=== PATIENT | male | born 1950 | race Caucasian/White ===

== ENCOUNTER 2017-05-20 09:48 | Inpatient (IN) | payer OTHER ==
[2017-05-20] VITALS (13 sets, daily range): BP systolic 105–147; BP diastolic 60–90
[~2017-05-20] VITALS: Ht 182.9 cm; Wt 101.6 kg
--- NOTE | ~2017-05-20 | H ---
[address] [address] HISTORY AND PHYSICAL Name: LISSETT KAY Room: [address] IN M.R.#: [id number] Admission: 05/20/17 Attend Phys: Tacos Ag MD, Discharge: 05/22/17 Date of : 52 Report #: [id number] THIS REPORT FOR: //name// For History and Physical please refer to the dictated consultation note in the patient's medical record. By[facility] MICHELE /IVÁN
[2017-05-20 09:59] LABS: ABSOLUTE BASOPHILS 0.1 thou/uL (0.0-0.2); ABSOLUTE EOSINOPHILS 0.4 thou/uL (0.0-0.7); ABSOLUTE LYMPHOCYTES 1.7 thou/uL (0.8-5.3); ABSOLUTE MONOCYTES 0.5 thou/uL (0.0-1.2); ABSOLUTE NEUTROPHILS 5.5 thou/uL (1.6-8.1); BASOPHILS 1.2 %; EOSINOPHILS 4.7 %; HEMATOCRIT 48.3 % (42.0-52.0); HEMOGLOBIN 16.5 gm/dL (14.0-18.0); LYMPHOCYTES 21.1 %; MCH 30.8 pg (26.0-34.0); MCHC 34.2 g/dL (28.0-37.0); MCV 90.1 fL (80.0-100.0); MONOCYTES 6.5 %; MPV 9.5 fl. (7.2-11.1); NUCLEATED RBCS 0 /100WBC; PLATELET COUNT* 138 thou/uL (150-400); POLYS 66.5 %; RBC 5.37 mil/uL (4.50-6.00); RDW-CV 14.2 % (10.5-14.5); WBC 8.2 thou/uL (4.0-11.0)
[2017-05-20 10:09] LABS: ANION GAP 10 mmol/L (7-16); APTT 26.5 Seconds (25.0-31.3); BUN 10 mg/dL (7-18); CALCIUM 8.3 mg/dL (8.5-10.1); CHLORIDE 100 mmol/L (98-107); CO2 24 mmol/L (21-32); CREATININE 1.3 mg/dL (0.6-1.3); GLUCOSE 312 mg/dL (70-99); INR 1.2; POTASSIUM 3.9 mmol/L (3.5-5.1); PROTIME 11.2 Seconds (9.20-11.50); SODIUM 134 mmol/L (136-145)
[2017-05-20 10:15] LABS: ALKALINE PHOSPHATASE 118 U/L (46-116); CHOLESTEROL 169 mg/dL (<200); HDL CHOLESTEROL 23 mg/dL (>40); LDL CHOLESTEROL 98 mg/dL (<100); MAGNESIUM 1.9 mg/dL (1.8-2.4); SGOT 10 U/L (15-37); SGPT 18 U/L (30-65); TC:HDL 7.3 Ratio (Not establshd); TOTAL BILIRUBIN 0.5 mg/dL (<0.1-1.0); TOTAL PROTEIN 6.5 g/dL (6.4-8.2); TRIGLYCERIDE 240 mg/dL (<150); TROPONIN-I LEVEL <0.06 ng/mL (<0.06); VLDL 48 mg/dL (<40)
[2017-05-20 10:16] LABS: SERUM ASSESSMENT Clear
--- NOTE | 2017-05-20 10:31 | NUR ---
PT'S BROTHER, LISSETT KAY CONTACTED AT PT'S REQUEST PHNE # [phone]
--- NOTE | 2017-05-20 17:52 | NUR ---
HRR SB 50'S. C/O PAIN AT R GROIN INSERTION SITE, DENIES WANTING PAIN MED. PT SITTING AT BEDSIDE EATING DINNER NOW. R GROIN SITE UNCHANGED SINCE INTIAL ASSESSMENT. DRESSING CDI. PT ABLE TO MAKE NEEDS KNOWN, CALL LIGHT IN REACH
[2017-05-21] VITALS (10 sets, daily range): BP systolic 102–132; BP diastolic 49–68
[2017-05-21 03:55] LABS: ABSOLUTE BASOPHILS 0.1 thou/uL (0.0-0.2); ABSOLUTE EOSINOPHILS 0.4 thou/uL (0.0-0.7); ABSOLUTE LYMPHOCYTES 2.2 thou/uL (0.8-5.3); ABSOLUTE MONOCYTES 0.7 thou/uL (0.0-1.2); ABSOLUTE NEUTROPHILS 6.6 thou/uL (1.6-8.1); BASOPHILS 0.9 %; EOSINOPHILS 4.2 %; HEMATOCRIT 47.6 % (42.0-52.0); HEMOGLOBIN 16.2 gm/dL (14.0-18.0); LYMPHOCYTES 22.1 %; MCH 30.5 pg (26.0-34.0); MCV 89.9 fL (80.0-100.0); MONOCYTES 7.2 %; MPV 9.1 fl. (7.2-11.1); NUCLEATED RBCS 0 /100WBC; PLATELET COUNT* 141 thou/uL (150-400); POLYS 65.6 %; RDW-CV 14.1 % (10.5-14.5); WBC 10.1 thou/uL (4.0-11.0)
[2017-05-21 04:17] LABS: ANION GAP 6 mmol/L (7-16); BUN 10 mg/dL (7-18); CALCIUM 8.2 mg/dL (8.5-10.1); CHLORIDE 105 mmol/L (98-107); CHOLESTEROL 176 mg/dL (<200); CO2 27 mmol/L (21-32); CREATININE 1.2 mg/dL (0.6-1.3); GLUCOSE 129 mg/dL (70-99); HDL CHOLESTEROL 21 mg/dL (>40); LDL CHOLESTEROL 94 mg/dL (<100); POTASSIUM 4.3 mmol/L (3.5-5.1); SODIUM 138 mmol/L (136-145); TC:HDL 8.4 Ratio (Not establshd); TRIGLYCERIDE 308 mg/dL (<150); VLDL 62 mg/dL (<40)
[2017-05-21 04:26] LABS: SERUM ASSESSMENT CLEAR; TROPONIN-I LEVEL 15.92 ng/mL (<0.06)
--- NOTE | 2017-05-21 05:32 | NUR ---
ASSUMED CARE OF PT AT 1900 ALERT AND ORIENTED X4. PTS VS AND ASSESSMENT STABLE DENIES CHEST PAIN AND R GROIN INCISION DRSG CDI. PT COMPLAIND OF LOW BACK PAIN WHICH PT STATED IS CHRONIC. GAVE PRN NORCO PER ORDER WITH COMPLETE RELIEF. PT HAD NO FURTHER COMPLAINTS AND SLEPT THROUGH THE NIGHT.
--- NOTE | 2017-05-21 09:37 | NUR ---
RECEIVED REPORT FROM NIGHT RN. ASSESSMENT CHARTED. AFEBRILE. TELE STATUS THIS MORNING. WILL CONTINUE TO MONITOR.
--- NOTE | 2017-05-21 12:54 | NUR ---
REPORT GIVEN TO SHERICE ROCHA. ALL QUESTIONS ANSWERED. PT TRANSFER TO TELE IN WHEELCHAIR WITH BELONGINGS TO ROOM 204.
--- NOTE | 2017-05-21 15:34 | EKG ---
[place] [address] ELECTROCARDIOGRAM REPORT Name: LISSETT KAY Room: [address] ADM IN M.R.#: [id number] Admission: 05/20/17 Attend Phys: Tacos Ag MD, Discharge: Date of : 52 Report #: [id number] THIS REPORT FOR: //name// [facility] ED Test Date: 2017-05-20 Test Time: 09:49:45 Pat Name: LISSETT KAY Department: Room: [address] Gender: M Compound Specialist: Jonas GUNN : 1950 Requested By: Tacos Ag Order Number: [id number] Mira MD: Tacos Ag Measurements Intervals [place] Rate: 71 P: 60 [place]: 160 QRS: 44 QRSD: 117 T: 71 QT: 402 QTc: 437 Interpretive Statements Sinus rhythm Nonspecific intraventricular conduction delay Inferior infarct, old No previous ECG available for comparison Electronically Signed On 05-21-2017 15:34:44 HARBOR MASTER by Tacos Ag [email or web address] <ELECTRONICALLY SIGNED> By: Tacos Ag MD, [facility] 05/21/17 1534 0949 0949 Tacos Ag MD, FACC /EPI
--- NOTE | 2017-05-21 15:36 | EKG ---
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: : 1950 Requested By: Armando Andrade Order Number: [id number] MD: Tacos Ag Measurements Intervals [place] Rate: 45 P: 55 [place]: 177 QRS: 15 QRSD: 111 T: -8 QT: 452 QTc: 391 Interpretive Statements Sinus bradycardia Inferior infarct, age indeterminate Posterior infarct, acute (LCx) Lateral leads are also involved No previous ECG available for comparison Electronically Signed On 05-21-2017 15:36:41 TRUSS BUILDER by Tacos Ag [email or web address] <ELECTRONICALLY SIGNED> By: Tacos Ag MD, [facility] 05/21/17 1536 1250 1250 Tacos Ag MD, FAC /EPI
--- NOTE | 2017-05-21 15:42 | EKG ---
[place] [address] ELECTROCARDIOGRAM REPORT Name: LISSETT KAY Room: [address] ADM IN M.R.#: [id number] Admission: 05/20/17 Attend Phys: Tacos Ag MD, Discharge: Date of : 52 Report #: [id number] THIS REPORT FOR: //name// [facility] Test Date: 2017-05-21 Test Time: 08:26:12 Pat Name: LISSETT KAY Department: Room: [facility] Gender: M Iron Bender: 28 : 1950 Requested By: Tacos Ag Order Number: [id number] Mira MD: Tacos Ag Measurements Intervals [place] Rate: 49 P: 55 [place]: 159 QRS: -13 QRSD: 103 T: -19 QT: 438 QTc: 396 Interpretive Statements Sinus bradycardia Probable left ventricular hypertrophy Inferior infarct, age indeterminate No previous ECG available for comparison Electronically Signed On 05-21-2017 15:42:33 ASSISTANT SURVEYOR by Tacos Ag [email or web address] <ELECTRONICALLY SIGNED> By: Tacos Ag MD, [facility] 05/21/17 1542 0826 08 Tacos Ag MD, FACC /EPI
--- NOTE | 2017-05-21 16:37 | NUR ---
RECEIVED PT FROM ICU. PT A/O X'S 4. NO C/O PAIN. PT INSTRUCTED TO NOTIFY NURSE OF CHEST PAIN. PT WALKING AD FUENTES. TRACING SINUS RHYHM. WILL CONTINUE PLAN OF CARE.
[2017-05-22 00:05] VITALS: BP 125/75
--- NOTE | 2017-05-22 01:12 | NUR ---
PT ALERT ORIENTED. PT STATED HEART BURN AT START OF SHIFT. MYLANTA AND PEPCID ORDER OBTAINED. PT DENIES CP. R GROIN SITE WITH SM BANDAGE. SOFT +2 DP PULSE. TELEMETRY SHOWS SR. WILL CONTINUE TO MONITOR.
[2017-05-22 04:11] VITALS: BP 118/52
[2017-05-22 07:45] VITALS: BP 118/71
[2017-05-22 09:09] VITALS: BP 108/49
--- NOTE | 2017-05-22 10:00 | NUR ---
ASSUMED PT CARE 0730. PT A/O X'S 4. DENIES CHEST PAIN. RIGHT GROIN SITE CLEAN, DRY, INTACT, NO HEMATOMA. PT UP AD FUENTES. TRACING SR. VSS. AFEBRILE. PT ANXIOUS TO GO HOME.
[2017-05-22] MEDS ORDERED: BRILINTA90 MG PO (10:10)
[2017-05-22] MEDS ORDERED: ASPIR 8181 MG PO (10:11)
[2017-05-22] MEDS ORDERED: LIPITOR 20 MG T20 M1 PO (10:12)
[2017-05-22] MEDS ORDERED: LISINOPRIL5 MG PO (10:16)
--- NOTE | 2017-05-22 12:01 | NUR ---
RECEIVED DISCHARGE ORDERS. IV AND MATCHER DC'D. ALL BELONGINGS PACKED UP AND LEFT WITH PT. PT EDUCATED ON RIGHT GROIN SITE CARE POST CARDIAC CATH. PRINTED EDUCATION GIVEN TO PT AND COPY SIGNED AND PLACED IN CHART. SCRIPTS GIVEN ALONG WITH PRINTED EDUCATION. PT COMMUNICATES UNDERSTANDING OF FOLLOW UPS AND MEDICATIONS. CAB CALLED FOR PT TO TAKE HOME.
--- NOTE | 2017-05-23 13:10 | CON ---
[address] [address] CONSULTATION Name: LISSETT KAY Room: [address] IN M.R.#: [id number] Admission: 05/20/17 Attend Phys: Tacos Ag MD, Discharge: 05/22/17 Date of : 52 Report #: [id number] THIS REPORT FOR: //name// CC: Tacos Lanza Rolando Shaunna DATE OF SERVICE: 05/20/2017 HISTORY OF PRESENT ILLNESS: The patient is a 66-year-old male with known coronary artery disease and prior stenting of the right coronary artery and prior inferior wall myocardial infarction. He developed central chest discomfort with radiation up into the neck about 4:00 a.m. with waxing and waning of discomfort until he finally presented to the [facility]. EKG in transit revealed inferior ST segment elevation compatible with acute inferior wall ST segment elevation myocardial infarction. In this context with persistent pain, he was seen in the ER. He denied associated shortness of breath, nausea or diaphoresis. Risk factors include tobacco habituation, known coronary artery disease with a prior myocardial infarction and prior stenting, hypercholesterolemia, borderline diabetes. Cigarette smoking is not well quantitated. PHYSICAL EXAMINATION: GENERAL: Demonstrates an acutely distressed middle-aged male. VITAL SIGNS: Blood pressure 140/70, pulse rate is 64, respirations are 18 per minute. NECK: Jugular venous pressure is normal. CHEST: Clear. CARDIAC: Reveals an S4 gallop. ABDOMEN: Soft and nontender, mildly obese. EXTREMITIES: Without edema with intact femoral, pedal and radial pulses. LABORATORY DATA: EKG in the field revealed inferior ST segment elevation. EKG here reveals some resolution of same. IMPRESSION: 1. Acute inferior wall ST segment elevation myocardial infarction with waxing and waning discomfort. 2. Coronary artery disease status post remote inferior infarction. 3. Prior stenting of the right coronary artery. 4. Tobacco habituation. 5. Hypercholesterolemia. 6. Mild type 2 diabetes by the patient's history. RECOMMENDATIONS: [place] [address] CONSULTATION Name: LISSETT KAY Room: [address] IN M.R.#: [id number] Admission: 05/20/17 Attend Phys: Tacos Ag MD, Discharge: 05/22/17 Date of : 52 Report #: [id number] 1. Aspirin and heparin have been administered. 2. Would plan emergent catheterization with strong consideration of acute intervention contingent on the findings of that study. This has been discussed with the patient, we will plan to proceed with cardiac catheterization emergently on 05/20/2017. The patient is going to ICU-1. Thirty-five minutes of critical care time from 11:25-12:00 on 05/20/2017. <ELECTRONICALLY SIGNED> By: Tacos Ag MD, [facility] 05/23/17 1310 1200 [id number] Ag MD, FACC /nt
--- NOTE | 2017-05-23 13:11 | D ---
[address] [address] DISCHARGE SUMMARY Name: LISSETT KAY Room: [address] IN M.R.#: [id number] Admission: 05/20/17 Attend Phys: Tacos Ag MD, Discharge: 05/22/17 Date of : 52 Report #: [id number] THIS REPORT FOR: //name// CC: Tacos Maza MD DATE OF SERVICE: 05/22/2017 FINAL DISCHARGE DIAGNOSES: 1. Acute inferior wall ST segment elevation myocardial infarction. 2. Coronary artery disease. 3. Status post stenting of the distal right coronary artery acutely in the setting of an inferior wall infarction on 05/20. 4. Tobacco abuse. 5. Hyperlipoproteinemia. 6. Mild type 2 diabetes. PROCEDURES: On 05/20/2017-left heart catheterization, left ventriculography, selective coronary arteriography, and percutaneous coronary intervention to the distal right coronary artery with deployment of drug-eluting stent at the site of total distal right coronary occlusion with 10% residual narrowing following stent deployment and RUBEN 3 flow of the distal vessel. The patient is a 66-year-old male with known coronary artery disease, status post remote stenting of the right coronary artery and prior inferior infarction. He presented in the mid morning of 05/20, having waxing and waning chest discomfort throughout the morning from 0400 until that point. EKG in the field revealed inferior wall ST segment elevation compatible with inferior wall ST segment elevation myocardial infarction. He continued to have pain in the ER and was taken emergently to the cardiac catheterization suite. He was defined to have a total distal right coronary occlusion with some left to right collaterals filling the distal right coronary artery. There was modest LAD and circumflex disease with a normal left main. In this context, I performed percutaneous coronary intervention, deploying one drug-eluting stent in the distal right coronary artery with a 10% residual narrowing following stent deployment, RUBEN 3 flow of the distal vessel, no residual thrombus. Left ventriculogram revealed an ejection fraction of 60% with subtle inferobasilar hypokinesis. He did well post-procedurally and there was good hemostasis at the right femoral site of catheterization. Troponin faiza to a peak value of 15.92. He ambulated in the hallways without difficulty. He did have moderate bradycardia post-procedurally and thus beta blockers were held. He was placed on dual antiplatelet therapy, [place]in [place] [address] DISCHARGE SUMMARY Name: LISSETT KAY Room: [address] IN [facility].#: [id number] Admission: 05/20/17 Attend Phys: Tacos Ag MD, Discharge: 05/22/17 Date of : 52 Report #: [id number] We also discussed the importance of cigarette smoking cessation. He appears to fit in cardiac rehabilitation, ambulated in the hallways without difficulty with good hemostasis at the right femoral site of catheterization. Laboratory postprocedurally revealed hemoglobin of 16.2, white blood cell count of 10,100 with 141,000 platelets. Troponin faiza to a peak value of 15.92. BUN was 10 with a creatinine of 1.2 and random glucose 129 mg percent. He was discharged to home on 05/22/2017, on the following medications: Aspirin 81 mg daily, atorvastatin 40 mg at bedtime, lisinopril 5 mg daily, ticagrelor or Brilinta 90 mg b.i.d. with 180 mg loading dose given. Follow up with my nurse practitioner in 1 week and I will plan to see him in several weeks, continuing care with Dr. Rolando Maza. Again, we talked about the importance of cigarette smoking cessation. Thus, the patient is discharged to home in stable condition on the aforementioned medications with followup as iterated above. <ELECTRONICALLY SIGNED> By: Tacos Ag MD, FACC 05/23/17 1311 0930 [id number] Ag MD, FACC /nt
--- NOTE | 2017-05-26 11:48 | CARD ---
[address] [address] CARDIAC CATH REPORT Name: LISSETT KAY Room: [address] IN M.R.#: [id number] Admission: 05/20/17 Attend Phys: Tacos Ag MD, Discharge: 05/22/17 Date of : 52 Report #: [id number] THIS REPORT FOR: //name// APPROVED REPORT Patient Details Patient Status: ED Room #: The patient is a 66 year-old male Event Personnel Tacos Ag Edi Architect, Derrick Mccoy (R) Monitor, Willie Matthews Scrub, Pamela Rodriguez Aerial Lineman Procedures Performed Left heart catheterization, left ventriculography, selective coronary arteriography, and percutaneous coronary intervention with deployment of a drug-eluting stent at site of total, 100% distal right coronary occlusion in the context of acute ST segment elevation myocardial infarction Indication STEMI Risk Factors Hypercholesterolemia, Coronary Artery DiseaseHypertension Previous Procedures/Diagnoses Previous PCI Admission/Lab Medications/Medications given during procedure Aspirin, Platelet Aff. Inhib., Angiomax bolus and infusion Procedure Narrative The patient was brought emergently to the Cardiac Catheterization Laboratory and was prepped and draped in a sterile manner. The right femoral was infiltrated with 1% Lidocaine subcutaneous anesthesia. A 6fr Ultimum Sheath sheath was inserted into the Right Femoral Artery. Coronary angiography was performed using coronary diagnostic catheters. The right coronary system was accessed and visualized with a Diagnostic catheter. The left coronary system was accessed and visualized with a Diagnostic catheter. The left ventricle was accessed and visualized with a Diagnostic catheter. Pre-demployment femoral angiogram was performed . Closure device was deployed with a Fr 8Fr Angioseal. The patient tolerated the procedure well and there were no complications [place] [address] CARDIAC CATH REPORT Name: LISSETT KAY Room: [address]#: [id number] Admission: 05/20/17 Attend Phys: Tacos Ag MD, Discharge: 05/22/17 Date of : 52 Report #: [id number] Intraoperative Conscious Sedation Sedation start time: 10:30 Case end Time: 11:27 Fentanyl 150 mcg Versed 4 mg Fluoro Time: 17.6 minutes Dose: DAP 364199 cGycm2 2574 mGy Contrast Type and Amount: Visipaque 410 ml Diagnostic Cath Left Main 0% narrowing LAD 40% mid LAD narrowing Circumflex Nondominant vessel with 20% distal narrowing Right Coronary Dominant vessel with 40% proximal narrowing, widely patent mid right very stenti, and 100% distal stenosis with local thrombus at the site Left Ventriculography The left ventricle is normal in size with normal contractility. The left ventricular ejection fraction is estimated to be 60%. There is no mitral insufficiency. IVUS Findings Trek RX 3.0 X 15 Hemodynamics The aortic pressure is 105/86 mmHg with a mean of 97 mmHg. The left ventricular pressure is 127/16 mmHg with a mean of mmHg. The left ventricular end diastolic pressure is 20 mmHg. There was no gradient across the aortic valve upon pullback. PCI Technique Lesion Anticoagulation was achieved with Angiomax. Patient was preloaded with Angiomax IV 15 ml. Percutaneous coronary intervention was performed on the distal right coronary artery. The lesion stenosis prior to intervention was 100% with RUBEN 0 flow. A 6Fr AR 1 Guide Catheter was used to engage the ostium. A [place] Interventional Guidewire was used to cross the lesion. BALLOON DILATION A Balloon catheter Trek RX 2.5 X 12 was inserted and inflated up to 10.00atm for 14seconds. Additional Inflation: 16.00atm for 21seconds[place] [address] CARDIAC CATH REPORT Name: LISSETT KAY Room: [address] IN ..#: [id number] Admission: 05/20/17 Attend Phys: Tacos Ag MD, Discharge: 05/22/17 Date of : 52 Report #: [id number] A drug-eluting stent Xience Alpine RX 3.5X18 was inserted and inflated up to 15atm for 15seconds. POST STENT DEPLOYMENT BALLOON DILATION A Balloon catheter NC Euphora 3.5x12 was inserted and inflated up to 16atm for 10seconds. Final angiography reveals 10 % stenosis with RUBEN 3 flow. BALLOON DILATION A Balloon catheter Trek RX 3.0 X 15 was inserted and inflated up to 14.00atm for 19seconds. Additional Inflation: 16.00atm for 19seconds. PCI Technique Lesion Percutaneous coronary intervention was performed on the distal right coronary artery. BALLOON DILATION A Balloon catheter NC Euphora 3.25x12 was inserted and inflated up to 18.00atm for 17seconds. Additional Inflation: 20.00atm for 18seconds. Additional Inflation: 22.00atm for 18seconds. STENT DEPLOYMENT A drug-eluting stent Xience Alpine RX 3.5X18 was inserted and inflated up to 18.00atm for 20seconds. Additional Inflation: 20.00atm for 13seconds. POST STENT DEPLOYMENT BALLOON DILATION A Balloon catheter NC Euphora 3.5x12 was inserted and inflated up to 18.00atm for 15seconds. Additional Inflation: 22.00atm for 17seconds. Additional Inflation: 24.00atm for 13seconds. Conclusion #1 significant coronary artery disease characterized by the following: A 100 percent distal right coronary occlusion with local thrombus at the site in the context of acute ST segment elevation inferior wall myocardial infarction, B 40% mid LAD narrowing, C 20% distal circumflex narrowing #2 normal left ventricular systolic function, [place] [address] CARDIAC CATH REPORT Name: LISSETT KAY Room: [address] IN ..#: [id number] Admission: 05/20/17 Attend Phys: Tacos Ag MD, Discharge: 05/22/17 Date of : 52 Report #: [id number] fraction being 60%, #3 modest elevation of left ventricular end-diastolic pressure at rest, #4 successful percutaneous coronary intervention with deployment of drug-eluting stent at the site of 100% distal right coronary occlusion with local thrombus at the site; there was 10% residual narrowing following stent deployment and RUBEN-3 flow to the distal vessel with no residual thrombus noted. Recommendations Cardiac Risk Reduction Program Aggressive Medical Therapy Medications Administered Aspirin (any) Ticagrelor <ELECTRONICALLY SIGNED> By: Tacos Ag MD, [facility] 05/26/17 1147 1147 [id number] Ag MD, FACC /INF
[2017-07-05] MEDS ORDERED: METFORMIN HCL500 MG PO (09:27)
== END 2017-05-22 12:48 | disposition home or self-care (01) | DRG 247 ==
LOC: M.ERS 09:48 → M.TBA-CV 12:08 → M.ICU 12:08 → M.2W 05-21 13:17
PROVIDERS: Emergency Medicine; ADMIT Internal Medicine
PROC: 027034Z Dilation of Coronary Artery, One Artery with Drug-eluting Intraluminal Device, Percutaneous Approach (ICD-10-PCS; principal; 2017-05-20)
PROC: 4A023N7 Measurement of Cardiac Sampling and Pressure, Left Heart, Percutaneous Approach (ICD-10-PCS; principal; 2017-05-20)
PROC: B2111ZZ Fluoroscopy of Multiple Coronary Arteries using Low Osmolar Contrast (ICD-10-PCS; principal; 2017-05-20)
PROC: B2151ZZ Fluoroscopy of Left Heart using Low Osmolar Contrast (ICD-10-PCS; principal; 2017-05-20)
DX: I21.19 ST elevation (STEMI) myocardial infarction involving other coronary artery of inferior wall (principal); I25.10 Atherosclerotic heart disease of native coronary artery without angina pectoris; I24.9 Acute ischemic heart disease, unspecified; F17.210 Nicotine dependence, cigarettes, uncomplicated; Z96.651 Presence of right artificial knee joint; E78.00 Pure hypercholesterolemia, unspecified; E78.5 Hyperlipidemia, unspecified; E11.9 Type 2 diabetes mellitus without complications; Z95.5 Presence of coronary angioplasty implant and graft; Z88.8 Allergy status to other drugs, medicaments and biological substances; Z23 Encounter for immunization; R00.1 Bradycardia, unspecified

== ENCOUNTER → 2017-06-07 | Outpatient (CLI) | payer OTHER ==
[~2017-06-07] MED LIST: ASPIR 8181 MG PO; BRILINTA90 MG PO; LIPITOR 20 MG T20 M1 PO; LISINOPRIL5 MG PO; METFORMIN HCL500 MG PO
== END ==
LOC: M.ULTRA 12:36
DX: I73.9 Peripheral vascular disease, unspecified (principal); M79.671 Pain in right foot; M79.672 Pain in left foot; M79.604 Pain in right leg; M79.605 Pain in left leg

== ENCOUNTER → 2017-07-05 | Outpatient (CLI) | payer OTHER ==
[~2017-07-05] VITALS: Ht 182.9 cm; Wt 102.1 kg
[2017-07-05 09:36] VITALS: BP 136/82
[2017-07-05 09:42] VITALS: BP 136/82
== END ==
LOC: M.INT 07-03 09:30
DX: I73.9 Peripheral vascular disease, unspecified (principal); Z72.0 Tobacco use

== ENCOUNTER → 2017-08-02 | Outpatient (CLI) | payer OTHER ==
[~2017-08-02] VITALS: Ht 182.9 cm; Wt 102.1 kg
[2017-08-02] VITALS (9 sets, daily range): BP systolic 119–159; BP diastolic 66–82
[2017-08-02 09:11] LABS: HEMATOCRIT 49.4 % (42.0-52.0); HEMOGLOBIN 17.1 gm/dL (14.0-18.0); MCHC 34.7 g/dL (28.0-37.0); MCV 89.4 fL (80.0-100.0); MPV 9.3 fl. (7.2-11.1); RBC 5.52 mil/uL (4.50-6.00); RDW-CV 14.4 % (10.5-14.5); WBC 7.5 thou/uL (4.0-11.0)
[2017-08-02 09:21] LABS: CALCIUM 9.3 mg/dL (8.5-10.1); CREATININE 1.2 mg/dL (0.6-1.3); POTASSIUM 5.2 mmol/L (3.5-5.1)
[2017-08-02 09:36] LABS: APTT 25.6 Seconds (25.0-31.3); INR 1.1; PROTIME 11.1 Seconds (9.20-11.50)
== END | disposition home or self-care (01) ==
LOC: M.LAB 08:30 → M.INT 09:30
PROVIDERS: Radiology Diagnostic Radiology
DX: I70.238 Atherosclerosis of native arteries of right leg with ulceration of other part of lower leg (principal); E11.9 Type 2 diabetes mellitus without complications; Z96.651 Presence of right artificial knee joint; Z95.828 Presence of other vascular implants and grafts; I10 Essential (primary) hypertension; F17.210 Nicotine dependence, cigarettes, uncomplicated